=== PATIENT | male | born 1960 | race African-American/Black ===

== ENCOUNTER 2018-09-06 13:42 | Inpatient (IN) ==
[2018-09-06] MEDS ORDERED: LIDOCAINE 1% 20 ML VIAL ONE (14:14)
[2018-09-06] MEDS ORDERED: MAGNESIUM SULF RIDER 4 GM in PREMIX 1 EACH IV PRN (14:44)
[2018-09-06] MEDS ORDERED: BISACODYL 5 MG TABLET PO PRN (14:44)
[2018-09-06] MEDS ORDERED: ACETAMINOPHEN 325 MG TABLET PO PRN (14:44)
[2018-09-06] MEDS ORDERED: DOCUSATE SODIUM 100 MG CAPSULE PO PRN (14:44)
[2018-09-06] MEDS ORDERED: HYDROmorphone 2 MG/1 ML VIAL ONE (14:44)
[2018-09-06] MEDS ORDERED: MAGNESIUM SULF RIDER 2 GM in PREMIX 1 EACH IV PRN (14:44)
[2018-09-06] MEDS ORDERED: diphenhydrAMINE CAP 25 MG CAPSULE PO PRN (14:44)
[2018-09-06] MEDS ORDERED: ZALEPLON 5 MG CAPSULE PO PRN (14:44)
[2018-09-06] MEDS ORDERED: MORPHINE 4 MG/1 ML VIAL IV PRN (14:44)
[2018-09-06] MEDS ORDERED: guaiFENesin/DM ER 600-30 MG TABLET PO PRN (14:44)
[2018-09-06] MEDS ORDERED: ONDANSETRON 4 MG/2 ML VIAL IV PRN (14:44)
[2018-09-06] MEDS ORDERED: NICOTINE 21 MG/24 HR PATCH TRANSDERM PRN (14:44)
[2018-09-06] MEDS ORDERED: PROMETHAZINE 25 MG TABLET PO PRN (14:44)
[2018-09-06] MEDS ORDERED: MIDAZOLAM 2 MG/2 ML VIAL ONE (14:51)
[2018-09-06] MEDS ORDERED: TIROFIBAN 5,000 MCG/100 ML PREMIX IV ONE (14:51)
[2018-09-06] MEDS ORDERED: TIROFIBAN 5,000 MCG/100 ML PREMIX IV SCH (14:59)
[2018-09-06] MEDS ORDERED: TICAGRELOR 90 MG TABLET ONE ×2 (15:14)
[2018-09-06] MEDS ORDERED: NITROGLYCERIN SL 0.4 MG TABLET SL PRN (15:27)
[2018-09-06] MEDS ORDERED: SODIUM CHLORIDE 0.9% 1,000 ML IV SCH (15:30)
[2018-09-06] MEDS: SODIUM CHLORIDE 0.45% 1,000 ML IV SCH (16:57)
[2018-09-06 17:05] LABS: Basophils % 0.2 % (0.0-0.8); Hematocrit 39.6 VOL% (42.0-52.0); Hemoglobin 13.3 GM/DL (14.0-18.0); Immature Granulocytes % 0.3 %; Immature Granulocytes Absolute 0.03 #; Lymphocytes # 1.2 10*3/uL (1.4-4.0); Lymphocytes % 11.3 % (21.2-54.2); Mean Corpuscular HGB Conc 33.6 GM/DL (32-36); Mean Platelet Volume 9.4 FL (9.6-12.0); Monocytes % 6.9 % (1.7-12.7); Neutrophils % 81.3 % (38.7-73.9); Platelet Count 204 T/CUMM (130-400); Red Cell Distribution Width 11.7 % (9.3-17.3); White Blood Count 10.2 T/CUMM (4-12)
[2018-09-06] MEDS: CARVEDILOL 3.125 MG TABLET PO SCH (17:21)
[2018-09-06] MEDS ORDERED: ALUMINUM/MAGNES/SIMETH MAX STR 30 ML UDCUP PO PRN (17:35)
[2018-09-06 17:41] LABS: Albumin 4.1 G/DL (3.4-5.0); Bilirubin,Total 1.5 MG/DL (0.2-1.0); Calcium 8.7 MG/DL (8.5-10.1); Osmolality,Calculated 285.1 MOS/KG (273-304); Risk Ratio 3.16; Thyroid Stimulating Hormone 0.575 uIU/ml (0.358-3.74); Total Protein 7.6 G/DL (6.4-8.3)
[2018-09-06 17:48] LABS: CKMB % 5.6 %
[2018-09-06] MEDS: ATORVASTATIN 20 MG TABLET PO SCH (21:20)
[2018-09-06] MEDS: TICAGRELOR 90 MG TABLET PO SCH (21:20)
[2018-09-06 23:52] LABS: Apearance,Urine CLEAR (Clear); Bilirubin,Urine Negative (Negative); Blood, Urine Negative (Negative); Glucose,Urine (UA) Negative (Negative); Ketones,Urine Negative (Negative); Mucus,Urine Occasional /LPF (Occasional); Nitrite,Urine Negative (Negative); Protein,Urine Negative; RBC,Urine 2 /HPF (0-4); Squamous Epithelial Cell,Urine Occasional /HPF (0-10); Urine Color Yellow (Yellow); Urine Specific Gravity 1.059 (1.001-1.035); Urine Urobilinogen < 2.0 EU/DL (0.2-1.0); WBC,Urine 47 /HPF (0-6)
[2018-09-07 01:42] LABS: Basophils % 0.2 % (0.0-0.8); Eosinophils % 0.2 % (0.00-10.9); Hematocrit 38.4 VOL% (42.0-52.0); Hemoglobin 13.1 GM/DL (14.0-18.0); Immature Granulocytes % 0.5 %; Immature Granulocytes Absolute 0.04 #; Lymphocytes # 1.7 10*3/uL (1.4-4.0); Lymphocytes % 19.4 % (21.2-54.2); Mean Corpuscular HGB Conc 34.1 GM/DL (32-36); Mean Corpuscular Volume 87.1 FL (87-102); Mean Platelet Volume 9.6 FL (9.6-12.0); Monocytes % 12.5 % (1.7-12.7); Neutrophils % 67.2 % (38.7-73.9); Platelet Count 188 T/CUMM (130-400); Red Blood Count 4.41 MC/CUMM (3.8-5.5); Red Cell Distribution Width 11.8 % (9.3-17.3); White Blood Count 8.7 T/CUMM (4-12)
[2018-09-07 01:56] LABS: Albumin 3.8 G/DL (3.4-5.0); Bilirubin,Total 1.6 MG/DL (0.2-1.0); Calcium 8.6 MG/DL (8.5-10.1); Osmolality,Calculated 279.4 MOS/KG (273-304); Total Protein 7.1 G/DL (6.4-8.3)
[2018-09-07] MEDS ORDERED: POTASSIUM CHLORIDE 20 MEQ TABLET PO ONE (06:54)
[2018-09-07] MEDS: SODIUM CHLORIDE 0.45% 1,000 ML IV SCH (07:10)
[2018-09-07] MEDS: TICAGRELOR 90 MG TABLET PO SCH ×2 (09:00→21:27)
[2018-09-07] MEDS ORDERED: DIGOXIN 0.125 MG TABLET PO SCH (09:00)
[2018-09-07] MEDS: CARVEDILOL 3.125 MG TABLET PO SCH ×2 (09:01→17:00)
[2018-09-07] MEDS: PANTOPRAZOLE 40 MG TABLET PO SCH (09:01)
[2018-09-07] MEDS: ASPIRIN EC 81 MG TABLET PO SCH (09:01)
[2018-09-07] MEDS: POTASSIUM CHLORIDE 20 MEQ TABLET PO PRN ×5 (09:01→15:29)
[2018-09-07] MEDS: amLODIPine 5 MG TABLET PO SCH (17:00)
[2018-09-07] MEDS: ATORVASTATIN 20 MG TABLET PO SCH (21:26)
[2018-09-08 03:48] LABS: Basophils % 0.3 % (0.0-0.8); Eosinophils % 0.3 % (0.00-10.9); Hemoglobin 13.3 GM/DL (14.0-18.0); Immature Granulocytes % 0.4 %; Immature Granulocytes Absolute 0.03 #; Lymphocytes # 1.6 10*3/uL (1.4-4.0); Lymphocytes % 22.4 % (21.2-54.2); Mean Corpuscular HGB Conc 33.3 GM/DL (32-36); Mean Corpuscular Volume 88.5 FL (87-102); Mean Platelet Volume 9.9 FL (9.6-12.0); Monocytes % 15.3 % (1.7-12.7); Neutrophils % 61.3 % (38.7-73.9); Platelet Count 183 T/CUMM (130-400); Red Blood Count 4.52 MC/CUMM (3.8-5.5); Red Cell Distribution Width 11.9 % (9.3-17.3); White Blood Count 7.2 T/CUMM (4-12)
[2018-09-08 04:02] LABS: Calcium 9.1 MG/DL (8.5-10.1); Osmolality,Calculated 281.1 MOS/KG (273-304)
[2018-09-08 08:29] VITALS: BP 114/80
[2018-09-08] MEDS: TICAGRELOR 90 MG TABLET PO SCH (08:42)
[2018-09-08] MEDS: amLODIPine 5 MG TABLET PO SCH (08:42)
[2018-09-08] MEDS: ASPIRIN EC 81 MG TABLET PO SCH (08:42)
[2018-09-08] MEDS: POTASSIUM CHLORIDE 20 MEQ TABLET PO PRN ×2 (08:42→10:10)
[2018-09-08] MEDS: PANTOPRAZOLE 40 MG TABLET PO SCH (08:42)
[2018-09-08] MEDS: CARVEDILOL 3.125 MG TABLET PO SCH (08:42)
[2018-09-08] MEDS ORDERED: LISINOPRIL 20 MG TABLET PO SCH (09:00)
[2018-09-08] MEDS ORDERED: POTASSIUM CHLORIDE 20 MEQ TABLET PO ONE (10:47)
[2018-09-09] MEDS ORDERED: POTASSIUM CHLORIDE 20 MEQ TABLET PO SCH (09:00)
[2018-09-09] MEDS ORDERED: PNEUMOCOCCAL VACCINE (13 VALENT) 0.5 ML SYRINGE IM ONE (16:15)
== END 2018-09-08 12:10 | disposition home or self-care (01) | DRG 247 ==
LOC: N.CL 13:42 → N.CC 13:48 → N.TELEN 09-07 18:03
PROVIDERS: ADMIT Internal Medicine Cardiovascular Disease; ATTEND Internal Medicine Cardiovascular Disease